=== PATIENT | female | born 1980 | race Caucasian/White ===

== ENCOUNTER → 2017-08-24 | Outpatient (CLI) | payer MEDICARE, MEDICAID ==
--- NOTE | 2017-08-24 15:36 | 2DMMODE ---
[place] [address] 2 D/M-MODE ECHOCARDIOGRAM Name: HITESH CARVALHO Room: [facility]#: [id number] Admission: 08/24/17 Attend Phys: Adrianne Goldsmith Discharge: Date of : 80 Date of Service: 08/24/17 1535 Report #: [id number] THIS REPORT FOR: //name// APPROVED REPORT Study performed: 08/24/2017 14:24:57 EXAM: Comprehensive 2D, Doppler, and color-flow Echocardiogram Patient Location: Out-Patient Status: routine BSA: 1.61 HR: 60 bpm BP: 120/70 mmHg Other Information Study Quality: Good Indications Murmur 2D Dimensions LVEF(%): 52.09 (>50%) IVSd: 6.89 (7-11mm) LVOT Diam: 18.13 (18-24mm) LVDd: 36.47 mm PWd: 6.24 (7-11mm) Ascending Ao: 25.65 (22-36mm) LVDs: 26.95 (25-40mm) Aortic Root: 16.96 mm Bolton's LVEF: 52.09 % Volumes Left Atrial Volume (Systole) LA ESV Index: 15.80 mL/m2 Aortic Valve AoV Peak Leonardo.: 1.41 m/s AO Peak Gr.: 7.97 mmHg LVOT Max P.07 mmHg AO Mean Gr.: 4.54 mmHg LVOT Mean P.06 mmHg LVOT Max V: 1.01 m/s AO V2 VTI: 23.10 cm LVOT Mean V: 0.66 m/s JOSE (VTI): 2.03 cm2 LVOT V1 VTI: 18.14 cm Mitral Valve E/A Ratio: 0.75 MV Decel. Time: 113.96 [place] [address] 2 D/M-MODE ECHOCARDIOGRAM Name: PARAS CARVALHOCI Room: [facility]#: [id number] Admission: 08/24/17 Attend Phys: Adrianne Goldsmith Discharge: Date of : 80 Date of Service: 08/24/17 1535 Report #: [id number] MV E Max Leonardo.: 0.70 m/s MV PHT: 33.05 ms MVA (PHT): 6.66 cm2 TDI E/Lateral E': 7.78 E/Medial E': 7.00 Medial E' Leonardo.: 0.10 m/s Lateral E' Leonardo.: 0.09 m/s Pulmonary Valve PV Peak Leonardo.: 1.17 m/s PV Peak Gr.: 5.45 mmHg Tricuspid Valve TR Peak Gr.: 25.85 mmHg RVSP: 30.85 mmHg Left Ventricle The left ventricle is normal size. There is normal LV segmental wall motion. There is normal left ventricular wall thickness. Left ventricular systolic function is normal. The left ventricular ejection fraction is within the normal range. LVEF is 55-60%. Grade I - abnormal relaxation pattern. Right Ventricle The right ventricle is normal size. The right ventricular systolic function is normal. Atria The left atrium size is normal. The right atrium size is normal. Aortic Valve The aortic valve is normal in structure. No aortic regurgitation is present. There is no aortic valvular stenosis. Mitral Valve The mitral valve is normal in structure. Mild mitral regurgitation. No evidence of mitral valve stenosis. Tricuspid Valve The tricuspid valve is normal in structure. Mild tricuspid regurgitation. The RVSP is __30.9 mmHg. Pulmonic Valve The pulmonary valve is normal in structure. There is no [place]mon[place] [address] 2 D/M-MODE ECHOCARDIOGRAM Name: HITESH CARVALHO Room: [facility]#: [id number] Admission: 08/24/17 Attend Phys: Adrianne Goldsmith Discharge: Date of : 80 Date of Service: 08/24/17 1535 Report #: [id number] Great Vessels The aortic root is normal in size. IVC is normal in size and collapses with >50% inspiration Pericardium There is no pericardial effusion. <Conclusion> LVEF is 55-60%. Grade I - abnormal relaxation pattern. Mild mitral regurgitation. There is normal LV segmental wall motion. Mild tricuspid regurgitation. The RVSP is __30.9 mmHg. <ELECTRONICALLY SIGNED> By: Stephen Narayanan MD, FACC 08/24/17 1535 1535 1535 Stephen Narayanan MD, FACC /INF
== END ==
LOC: M.CRD 14:00
DX: I08.1 Rheumatic disorders of both mitral and tricuspid valves (principal)